=== PATIENT | female | born 1975 | race Caucasian/White ===

== ENCOUNTER 2017-01-24 19:33 | Emergency (ER) | payer OTHER ==
[~2017-01-24] VITALS: Ht 162.6 cm; Wt 62.6 kg
[~2017-01-24 19:33] MED LIST: DULO60CA7 PO; GABA600T2 PO; NAPR500T3 PO; OMEP20TA62 PO; OXYC-307 PO
[2017-01-24 19:36] VITALS: BP 128/85
[2017-01-24] MEDS ORDERED: KETOROLAC 30 MG/1 ML ONE (20:55)
[2017-01-24] MEDS ORDERED: DIAZEPAM 5 MG TABLET ONE (20:55)
[2017-01-24] MEDS ORDERED: KETOROLAC 30 MG/1 ML IM ONE (21:00)
[2017-01-24] MEDS ORDERED: DIAZEPAM 5 MG TABLET PO ONE (21:00)
== END 2017-01-24 21:43 | disposition home or self-care (01) ==
LOC: ED 21:37
DX: M54.42 Lumbago with sciatica, left side (principal); F17.200 Nicotine dependence, unspecified, uncomplicated; Z88.5 Allergy status to narcotic agent; Z88.8 Allergy status to other drugs, medicaments and biological substances
CPT/HCPCS: 73523; 73564; 96372; 99284; J1885